=== PATIENT | male | born 1980 | race Caucasian/White ===

== ENCOUNTER 2023-01-25 17:14 | Emergency (ER) | payer BC, SELFPAY ==
[2023-01-25 17:22] VITALS: BP 114/78; PULSE 84; RESP 16; TEMP 36.8; O2SAT 100
--- NOTE | 2023-01-25 17:24 | ECG_ITS ---
Measurements Intervals [place] Rate: 67 P: 73 CO: 174 QRS: 76 QRSD: 101 T: 52 QT: 410 QTc: 436 Interpretive Statements SINUS RHYTHM WITH SINUS ARRHYTHMIA POSSIBLE LEFT ATRIAL ENLARGEMENT [-0.1mV P WAVE IN V1/V2] INCOMPLETE RIGHT BUNDLE BRANCH BLOCK [90+ ms QRS DURATION, TERMINAL R IN V1/V2, 40+ ms S IN I/aVL/V4/V5/V6] BORDERLINE ECG NO PREVIOUS ECG AVAILABLE FOR COMPARISON Electronically Signed On 01-26-2023 9:35:07 CDT by Lambert Mendez M.D.
--- NOTE | 2023-01-25 17:30 | ED.CHESTPAIN ---
HPI - Chest Pain General Chief Complaint: Chest Pain Stated Complaint: chest pain Time Seen by Provider: 01/25/23 17:31 Source: patient Mode of arrival: ambulatory Limitations: no limitations History of Present Illness HPI narrative: 43-year-old male presents concern for reproducible left anterior chest pain. Reports that started suddenly when he was doing bench presses. He reports the pain is reproducible with palpation. He reports that is 2/10. He reports it hurts when he coughs. He denies pain with deep breathing. He denies rash, bruising. He reports he positions with no pain at all, it hurts worse when he has been sleeping on it, and with certain movements. He denies shortness of breath, diaphoresis, syncope, near syncope, worsening pain with exertion. MD complaint: chest pain Related Data Home Medications Medication Instructions Recorded Confirmed No Home Medications 01/25/23 01/25/23 Allergies Allergy/AdvReac Type Severity Reaction Status Date / Time poison reina extract Allergy Mild Rash Verified 01/25/23 17:17 Review of Systems Review of Systems: CONSTITUTIONAL: Denies malaise, chills, sweats, or fever. EYES: Denies visual changes, redness, or discharge. CARDIOVASCULAR: Reports anterior left chest pain. Denies palpitations, or edema. RESPIRATORY: Denies cough or dyspnea. GASTROINTESTINAL: Denies abdominal pain, nausea, vomiting SKIN: Denies rash or itching. MUSCULOSKELETAL: Denies back pain, joint pain, or myalgia. NEUROLOGIC: Denies numbness, weakness All systems reviewed & are unremarkable except as noted in HPI and below PMFSH Comments At time of signature, agree with nursing past medical, surgical, social and family history. There is no relevant family history pertinent to the presenting complaint Exam Narrative: GENERAL: Well-appearing, well-nourished, and in no acute distress. HEAD: Normocephalic, atraumatic. EYES: PERRLA, sclera clear ENT: Nares clear. Mucous membranes moist. NECK: Supple. No lymphadenopathy. No jugular venous distension CHEST: No respiratory distress. Clear to auscultation. No bony deformities, no asymmetry. Speaks in full sentences. HEART: Regular rate and rhythm. No murmur heard. Normal peripheral pulses. EXTREMITIES: Normal range of motion. No edema. Normal strength and sensation. SKIN: Warm, dry, no visible rash. NEURO: Alert and oriented x3. PSYCH: Normal mood and affect Course Course Emergency Course: Patient is aware of diagnosis, understands and agrees to treatment plan. Anticipatory guidance given. Patient agrees to follow-up as directed and is aware of reasons to seek care at the emergency department. Portions of this record may have been created with voice recognition software Level of Care: Express Care Visit Vital Signs Vital signs: Vital Signs Temperature 98.3 F 01/25/23 17:22 Pulse Rate 84 01/25/23 17:22 Respiratory Rate 16 01/25/23 17:22 Blood Pressure 114/78 01/25/23 17:22 Pulse Oximetry 100 01/25/23 17:22 Temperature 98.3 F 01/25/23 17:22 Pulse Rate 84 01/25/23 17:22 Respiratory Rate 16 01/25/23 17:22 Blood Pressure 114/78 01/25/23 17:22 Pulse Oximetry 100 01/25/23 17:22 Reviewed. MDM - Chest Pain MDM Narrative Medical decision making narrative: No evidence of ACS, pericarditis, myocarditis, pulmonary embolism, pneumothorax, pneumonia, Zoster, or esophageal perforation. Historically not abrupt in onset, tearing or ripping, pulses symmetric, no evidence of aortic dissection. No pulse deficit. Not associated with abdominal or back pain. ECG Data EKG #1: ECG completion date: 01/25/23 ECG completion time: 17:31 Prior ECG tracings: not available for review Interpretation: Rate 67, LA interval 174 QRS duration 101, possible left atrial enlargement, right incomplete bundle branch block. No ST changes no ST segment elevation, no T-wave changes EKG Interpretation:
== END 2023-01-25 17:40 | disposition home or self-care (01) ==
PROVIDERS: Emergency Provider Nurse Practitioner
DX: R07.89 Other chest pain (principal); I45.10 Unspecified right bundle-branch block
CPT/HCPCS: 93005; 99213; G0463

== ENCOUNTER 2024-12-26 08:29 | Emergency (ER) | payer BC, SELFPAY ==
--- NOTE | 2024-12-26 08:37 | ED.EYEPROB ---
HPI - Eye Problem General Chief complaint: Eye Problems Stated complaint: SORE THROAT/COUGH/EYE REDNESS Source: patient Mode of arrival: ambulatory Limitations: no limitations History of Present Illness HPI Narrative: Patient is a 44 year old male that presents to Express Care with complaints of a sore throat and right eye pain since this morning. He states that his eye was crusty this morning. Denies any vision changes, fevers, nausea, vomiting, chills, shortness of breath or difficulty swallowing. Related Data Home Medications ?Medication ?Instructions ?Recorded ?Confirmed ?Last Taken ?Type No Home Medications 01/25/23 01/25/23 Unknown History Allergies Allergy/AdvReac Type Severity Reaction Status Date / Time poison reina extract Allergy Mild Rash Verified 12/26/24 08:31 Review of Systems Review of Systems: CONSTITUTIONAL: Denies body aches, fever, chills EYES: Endorses redness and pain to R?eye. Denies FB sensation, photophobia,visual changes ENT: Denies rhinorrhea, congestion, or otalgia. Reports sore throat. CARDIOVASCULAR: Denies chest pain, palpitations RESPIRATORY: Denies cough or dyspnea. GASTROINTESTINAL: Denies abdominal pain, nausea, vomiting, or diarrhea. SKIN: Denies rash, itching, or wounds. MUSCULOSKELETAL: Denies back pain, joint pain, or myalgia. NEUROLOGIC: Denies headache, numbness, tingling, or weakness. All systems reviewed & are unremarkable except as noted in HPI and below PMFSH Comments At time of signature, I have reviewed and agree with nursing past medical, surgical, social and family history unless otherwise noted. Please see nursing chart for further information. There is no relevant family history pertinent to the presenting complaint. Exam Narrative: GENERAL: Well-appearing HEAD: Normocephalic, atraumatic. EYES: ?Right Conjunctival injection. No eye lid swelling/redness. EOMI. ENT: Mucous membranes pink and moist. ?No rhinorrhea. ?TMs normal bilaterally. ?Throat with redness. Uvula midline. No nasal congestion. CHEST: ?Clear to auscultation. HEART: Regular rate and rhythm. ABDOMEN: Soft, nontender, nondistended SKIN: Warm, dry, no rash. ?Normal skin turgor. NEURO: No focal deficits. Alert and oriented x3 PSYCH: ?Normal affect. Course Course Level of Care: Express Care Visit Vital Signs Vital signs: Vital Signs Temperature 98.3 F 12/26/24 08:41 Pulse Rate 82 12/26/24 08:41 Respiratory Rate 16 12/26/24 08:41 Blood Pressure 117/86 12/26/24 08:41 Pulse Oximetry 99 12/26/24 08:41 Temperature 98.3 F 12/26/24 08:41 Pulse Rate 82 12/26/24 08:41 Respiratory Rate 16 12/26/24 08:41 Blood Pressure 117/86 12/26/24 08:41 Pulse Oximetry 99 12/26/24 08:41 Reviewed MDM - Eye Problem MDM Narrative Medical decision making narrative: Discussed physical exam findings. Antibiotic for conjunctivitis. Advised supportive measures and signs/symptoms to go to the ER. Pt is appropriate for outpt treatment and follow up. Differential Diagnosis Differential diagnosis: Likely conjunctivitis and other (strep throat, allergies. ) Lab Data Attestation: I reviewed the patient's lab results. Labs: Lab Results 12/26/24 Range/Units 08:56 POC Grp A Strep Screen Negative (Negative) Critical Care Time Critical Care Time Critical Care Time: No Discharge Plan Discharge Clinical Impression: [place] eye disease of right eye Patient Disposition: Home Condition: Stable Instructions: Antibiotic Form, Conjunctivitis (ED) Additional Instructions: Avoid touching or rubbing your eye. Use over the counter lubricating eye drops as needed for irritation Use a warm or cool washcloth on your eye for comfort Use eyedrops as directed - you are contagious for 24 hours after starting the antibiotic Practice good handwashing and hygiene to prevent spread of infection Do not wear the contact lenses. Use a new pair after the infection is resolved. Use new makeup, lashes etc. You may take Tylenol or ibuprofen for pain Follow-up with PCP or treasury assistant if condition is not improving in 2-3days. Go to the emergency room if you have severe pain or pressure behind your eye, difficulty seeing, or other severe symptoms Patient Language: Japanese Prescriptions: New polymyxin B sulf-trimethoprim 10,000 unit- 1 mg/mL drops 1 drp RIGHT EYE QID 5 Days Qty: 10 0RF No Action No Home Medications Follow-up/Referrals: PHYSICIAN,[facility] SPECIALIST [Primary Care Provider] - Time of Disposition: 08:50
[2024-12-26 08:41] VITALS: BP 117/86; PULSE 82; RESP 16; TEMP 36.8; O2SAT 99
[2024-12-26 08:58] LABS: EDSTREPNEGPOS1 Negative (Negative)
== END 2024-12-26 08:57 | disposition home or self-care (01) ==
DX: H10.021 Other mucopurulent conjunctivitis, right eye (principal)
CPT/HCPCS: 87081; 87880; 99213; G0463